=== PATIENT | female | born 1985 | race Two or more races ===

== ENCOUNTER 2018-03-13 20:32 | Emergency (ER) | payer OTHER, MEDICAID ==
[~2018-03-13] VITALS: Ht 157.5 cm; Wt 72.5 kg
[2018-03-13] MEDS ORDERED: BP MED (20:49)
[2018-03-13] MEDS ORDERED: ONDANSETRON ODT 4 MG PO ONE (21:30)
[2018-03-13] MEDS ORDERED: ONDANSETRON ODT 4 MG ONE (21:34)
[2018-03-13 22:03] LABS: HCG UR SG 1.015 (1.003-1.030)
[2018-03-13 22:36] VITALS: BP 112/69
== END 2018-03-13 22:49 | disposition home or self-care (01) ==
LOC: ED 22:20
DX: R07.0 Pain in throat (principal); I10 Essential (primary) hypertension
CPT/HCPCS: 71046; 81025; 87081; 87880; 93005; 99285; Q0162